=== PATIENT | male | born 2005 | race Caucasian/White ===

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

== ENCOUNTER 2023-01-18 19:54 | Emergency (ER) | payer MEDICAID, SELFPAY ==
--- NOTE | 2023-01-18 19:57 | XRR_ITS ---
PROCEDURE INFORMATION: Exam: XR Left Wrist Exam date and time: 01/18/2023 8:03 PM Age: 17 years old Clinical indication: Injury or trauma; Fall; Swelling (edema); Wrist; Left TECHNIQUE: Imaging protocol: Radiologic exam of the left wrist. Views: 3 or more views. COMPARISON: No relevant prior studies available. FINDINGS: Bones/joints: Distal radial metaphyseal somewhat impacted minimally displaced fracture best seen on the lateral view. Soft tissues: Normal. XR/XR wrist LT min 3V* [id number] IMPRESSION: Distal radial metaphyseal somewhat impacted minimally displaced fracture best seen on the lateral view.
[2023-01-18 20:07] VITALS: BP 116/76; PULSE 94; RESP 16; TEMP 36.4; O2SAT 100; BMI 21.4
--- NOTE | 2023-01-18 21:10 | W.ED.EXTPRO ---
HPI - Extremity Problem General: Chief complaint: Extremity Injury, Upper Stated complaint: left wrist injury Time Seen by Provider: 01/18/23 21:08 Source: patient Mode of arrival: ambulatory Limitations: no limitations History of Present Illness: 17-year-old male states he was playing basketball this evening he states he went for a shot and fell onto his left wrist he had left wrist pain since then he does have swelling states much worse with movement and with palpation he denies any other injuries denies hitting his head he rates his pain a 6 out of 10 currently. Associated symptoms: Deny chest pain, fever(s) or rash Review of Systems Const: Denies: fever(s), chills, body aches or change in appetite Eyes: Denies: blurry vision or eye discomfort ENMT: Denies: throat pain or dental pain Card: Denies: chest pain Resp: Denies: dyspnea GI: Denies: abdominal pain, nausea, vomiting or diarrhea : Denies: dysuria Musc: Reports: extremity pain Skin/Breast: Denies: rash Neuro: Denies: headache(s) Psych: Denies: depression Ashish/Lymph: Denies: easy bruising All/Imm: Denies: urticaria PFSH ED PFSH: Medical History No pertinent past medical history Social History Smoking and tobacco status: never smoked Second hand smoke exposure: Yes Physical Exam Const: COMMON NORMALS: no acute distress and patient oriented x3 HENMT: COMMON NORMALS: normocephalic HEAD & SCALP: normocephalic Eye: COMMON NORMALS: conjunctivae normal CONJUNCTIVA: Yes conjunctivae normal Neck/C-Spine: COMMON NORMALS: full ROM Chest: COMMONS NORMALS: normal inspection of the chest Resp: COMMON NORMALS: normal respiratory effort Cardio: COMMON NORMALS: regular rate RATE: regular rate GI: INSPECTION: Yes normal to inspection Extremity: OTHER: Tenderness and swelling to left wrist distal pulses sensation intact Neuro: COMMON NORMALS: patient oriented x3 Psych: COMMON NORMALS: mental status grossly normal Skin: COMMON NORMALS: no rashes or lesions noted GENERAL SKIN EXAM: no rashes or lesions noted Course Vital Signs: Vital signs: Vital Signs Temperature 97.6 F 01/18/23 20:07 Pulse Rate 94 01/18/23 20:07 Respiratory Rate 16 01/18/23 20:07 Blood Pressure 116/76 01/18/23 20:07 Pulse Oximetry 100 01/18/23 20:07 Oxygen Delivery Me thod 01/18/23 20:07 MDM - Extremity (Nontraumatic) Medical Decision Making Patient presents here with wrist fracture from a fall I did review his EKG and per my interpretation he has a compacted distal radius fracture I do not see any angulation no need for reduction at this time. He has no elbow or shoulder pain or no other injuries we will place him in a splint and given follow-up with orthopedics. Lab Data Radiology Impressions Wrist X-Ray 01/18/23 19:57 IMPRESSION: Distal radial metaphyseal somewhat impacted minimally displaced fracture best seen on the lateral view. Discharge Plan Discharge Patient Disposition: Home Clinical Impression: Fracture of wrist Qualifiers: Encounter type: initial encounter Fracture type: closed Laterality: left Qualified Code(s): S62.102A - Fracture of unspecified carpal bone, left wrist, initial encounter for closed fracture Condition: Stable Prescriptions: New Naprosyn 500 mg tablet 500 mg PO BID PRN (Reason: pain) Qty: 20 0RF Discharge Orders: Discharge ED (Routine); Ordered 01/18/23 Ordered By: Ricardo Joshua Referrals: Melvina Caruso DO [Primary Care Provider] - Edilson Reeves MD [Physician] - 1-3 days Discharge Diet: Advance as tolerated Discharge Activity: Resume usual activity Patient Instructions: Wrist Fracture in Adults (ED) Coding Level of Care Code ED [employer] S[employer] 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
[2023-01-18] MEDS: HYDROcodone-acetaminophen 5-325 mg Tablet 1 TAB PO (21:47)
--- NOTE | 2023-01-21 10:22 | DCPLANNER ---
Addendum entered by Maryam Bishop 01/24/23 07:57: Patient had a follow up appointment with ortho - patient did attend appointment. Addendum entered by Maryam Bishop 01/22/23 09:33: Patient has a follow up appointment scheduled for Saturday, January 23, [address]23 at 3:[address] Reeves at ortho. Original Note: backpackers manager had message to schedule a follow up appointment for patient with ortho. backpackers manager sent patients information to the front office staff at ortho. Patients information will be printed and reviewed. Clinic will call patient with appointment information.
== END 2023-01-18 21:55 | disposition home or self-care (01) ==
PROVIDERS: Emergency Provider Emergency Medicine; PCP Pediatrics
DX: S52.592A Other fractures of lower end of left radius, initial encounter for closed fracture (principal); Z77.22 Contact with and (suspected) exposure to environmental tobacco smoke (acute) (chronic); W18.39XA Other fall on same level, initial encounter; Y93.67 Activity, basketball
CPT/HCPCS: 29125; 73110; 99283

== ENCOUNTER 2023-01-23 16:32 | Outpatient (CLI) | payer MEDICAID, SELFPAY | END 2023-01-23 16:33 | disposition home or self-care (01) | LOC: SPT 16:32 | PROVIDERS: PCP Pediatrics; Visit Provider Orthopaedic Surgery | DX: Z46.89 Encounter for fitting and adjustment of other specified devices (principal); S52.592A Other fractures of lower end of left radius, initial encounter for closed fracture; X58.XXXA Exposure to other specified factors, initial encounter | CPT/HCPCS: 97760; L3982 ==

== ENCOUNTER 2023-01-28 07:50 | Emergency (ER) | payer MEDICAID, SELFPAY ==
[2023-01-28 07:54] VITALS: BP 132/90; PULSE 66; RESP 17; O2SAT 97; BMI 20.5
--- NOTE | 2023-01-28 08:20 | ED_ITS ---
Documented by User: HILTON Hernandez 01/28/23 11:44 HPI - General Adult General: Chief complaint: Airway/Esophagus Foreign Body Stated complaint: throwing up blood post tonsillectomy Time Seen by Provider: 01/28/23 07:51 Source: patient and family (mother) Mode of arrival: ambulatory Limitations: no limitations History of Present Illness: Patient is a 17-year-old male who presents to ED today along with his mother for concerns of post tonsillectomy bleeding. Patient states he is on day 4 of a tonsillectomy performed by ENT surgeon in [facility]. According to mother patient spent the night with friends last night and began vomiting blood at some point in the middle of the night. Patient states pain is comparable currently to what he has been experiencing over the last 4 days postop-no worsening discomfort. He states he has been eating and drinking well postop. Onset (ago): hour(s) Location: mouth (throat) Severity: moderate Pain Consistency: constant Relieving factors: none Associated symptoms: Reports no associated symptoms; Deny chest pain, dyspnea or malaise Treatments prior to arrival: none Review of Systems Const: Denies: fever(s), chills, body aches, fatigue or malaise ENMT: Reports: throat pain, odynophagia and other (tonsillar bleeding) Card: Denies: chest pain Resp: Denies: dyspnea GI: Denies: abdominal pain PFS ED PFSH: Medical History No pertinent past medical history Surgical History History of tonsillectomy and adenoidectomy Hx of appendectomy Social History Smoking and tobacco status: never smoked Second hand smoke exposure: Yes Physical Exam Const: COMMON NORMALS: no acute distress, average body habitus, patient oriented x3, no limitations, healthy appearing, alert and well nourished GENERAL APPEARANCE: cooperative ORIENTATION/CONSCIOUSNESS: Yes awake, Yes oriented to person, Yes oriented to place and Yes oriented to time HENMT: FACE & SINUS: normal facial exam MOUTH: Normal oral and palatal mucosa present, lip normal, malodorous breath (normal post tonsillectomy) and other (dried blood present throughout oral cavity) THROAT: uvula midline OTHER: absent tonsils; eschar tissue present; no active source of bleeding identified at this time although he does have quite a bit of dried blood throughout his oral pharynx making visualization difficult; no active vomiting or spitting blood Eye: GENERAL EYE: appearance normal, both eyes and all related structures Neck/C-Spine: COMMON NORMALS: full ROM GENERAL: Yes normal visual inspection, No anterior neck swelling and No submandibular swelling OTHER: some scant ecchymosis consistent with recent surgery Resp: COMMON NORMALS: normal respiratory effort and clear to auscultation bilaterally AUSCULTATION: clear to auscultation bilaterally Cardio: COMMON NORMALS: regular rate and regular rhythm RATE: regular rate RHYTHM: regular rhythm Neuro: COMMON NORMALS: patient oriented x3 SENSORIUM/ORIENTATION: Yes alert, Yes oriented to person, Yes oriented to place and Yes oriented to time Course Consultations: Consultation #1: Dr. Lucero-recommends gargling with ice cold hydrogen peroxide for 5-20 mins and reassess bleeding after this Vital Signs: Vital signs: Vital Signs Pulse Rate 66 01/28/23 07:54 Respiratory Rate 17 01/28/23 07:54 Blood Pressure 132/90 01/28/23 07:54 Pulse Oximetry 97 01/28/23 07:54 Oxygen Delivery Me thod Room Air 01/28/23 07:54 MDM - General Adult Medical Decision Making After first consulting with ENT we had patient gargle with cold hydrogen peroxide. There was some degree of noncompliance with patient regarding this. Ultimately we did get bleeding to stop for a short amount of time however he began bleeding again. Upon re-examination he appeared to have a small clot to his left lateral tonsillar pillar region-this seems to be gagging him and making him nauseous. He was able to gargle and expel the clot which then caused bleeding to resume. I spoke to Dr. Lucero again who recommended discharging patient with instructions to come directly to his office for further evaluation and treatment. Patient is stable from a bleeding standpoint to be discharged from the emergency department. Although present, it is very minimal at this time. Discharge Plan Discharge Patient Disposition: Home Clinical Impression: Post-tonsillectomy hemorrhage Condition: Stable Prescriptions: No Action ibuprofen 200 mg capsule 200 mg PO Q6H PRN (DME) Fast Form Cock Up Splint See Rx Instructions .Route .MEDSUPPLY Qty: 1 0RF Rx Instructions: As directed oxycodone-acetaminophen 5-325 mg tablet 1 tab PO Q8H PRN Naprosyn 500 mg tablet 500 mg PO BID PRN (Reason: pain) Qty: 20 0RF Discharge Orders: Discharge ED (Routine); Ordered 01/28/23 Ordered By: Melly Guerrero Referrals: Vicente Lucero MD [Physician] - Melvina Caruso DO [Primary Care Provider] - Activity Restrictions/Additional Instructions: As we discussed go straight to Dr. Lucero's office for further evaluation and treatment. [facility] is located in [facility]. You have been provided instructions/address/phone number to get there. He needs to continue to gargle with the cold water/hydrogen peroxide until he sees Dr. Lucero. Coding Level of Care Code ED Managing Partner [employer] for [employer] F[employer] Documented by User: John Ricci DO 01/28/23 12:50 HPI - General Adult General: Chief complaint: Airway/Esophagus Foreign Body Stated complaint: throwing up blood post tonsillectomy Time Seen by Provider: 01/28/23 07:51 PFSH ED PFSH: Medical History No pertinent past medical history Surgical History History of tonsillectomy and adenoidectomy Hx of appendectomy Social History Smoking and tobacco status: never smoked Second hand smoke exposure: Yes Course Vital Signs: Vital signs: Vital Signs Pulse Rate 66 01/28/23 07:54 Respiratory Rate 17 01/28/23 07:54 Blood Pressure 132/90 01/28/23 07:54 Pulse Oximetry 97 01/28/23 07:54 Oxygen Delivery Me thod Room Air 01/28/23 07:54 MDM - General Adult Medical Decision Making After first consulting with ENT we had patient gargle with cold hydrogen peroxide. There was some degree of noncompliance with patient regarding this. Ultimately we did get bleeding to stop for a short amount of time however he began bleeding again. Upon re-examination he appeared to have a small clot to his left lateral tonsillar pillar region-this seems to be gagging him and making him nauseous. He was able to gargle and expel the clot which then caused ble eding to resume. I spoke to Dr. Lucero again who recommended discharging patient with instructions to come directly to his office for further evaluation and treatment. Patient is stable from a bleeding standpoint to be discharged from the emergency department. Although present, it is very minimal at this time. Chart reviewed and patient discussed with midlevel. Agree with assessment and plan. Discharge Plan Discharge Patient Disposition: Home Clinical Impression: Post-tonsillectomy hemorrhage Condition: Stable Prescriptions: No Action ibuprofen 200 mg capsule 200 mg PO Q6H PRN (DME) Fast Form Cock Up Splint See Rx Instructions .Route .MEDSUPPLY Qty: 1 0RF Rx Instructions: As directed oxycodone-acetaminophen 5-325 mg tablet 1 tab PO Q8H PRN Naprosyn 500 mg tablet 500 mg PO BID PRN (Reason: pain) Qty: 20 0RF Discharge Orders: Discharge ED (Routine); Ordered 01/28/23 Ordered By: Melly Guerrero Referrals: Vicente Lucero MD [Physician] - Melvina Caruso DO [Primary Care Provider] - Activity Restrictions/Additional Instructions: As we discussed go straight to Dr. Lucero's office for further evaluation and treatment. He is located in the new Medical Office [facility]. You have been provided instructions/address/phone number to get there. He needs to continue to gargle with the cold water/hydrogen peroxide until he sees Dr. Lucero. Coding Level of Care Code ED Managing Partner [employer] for Sheila Duggan
[2023-01-28] MEDS: ondansetron 4 MG Tablet PO (10:56)
== END 2023-01-28 11:27 | disposition home or self-care (01) ==
PROVIDERS: Emergency Provider Physician Assistant; PCP Pediatrics
DX: K91.840 Postprocedural hemorrhage of a digestive system organ or structure following a digestive system procedure (principal); Z77.22 Contact with and (suspected) exposure to environmental tobacco smoke (acute) (chronic)
CPT/HCPCS: 99283; Q0162

== ENCOUNTER 2023-01-28 12:36 | Day surgery (SDC) | payer MEDICAID, SELFPAY ==
[2023-01-28] VITALS (12 sets, daily range): BP systolic 111–138; BP diastolic 62–82; PULSE 50–74; RESP 14–17; TEMP 36.2–36.9; O2SAT 94–100; BMI 20.7
--- NOTE | 2023-01-28 12:46 | W.PM.OPSUD ---
Surgery/Procedure H&P Update DATE OF PROCEDURE: January 28, 2023 DATE H&P PERFORMED: 01/28/23 H&P UPDATE INFORMATION: I have reviewed H&P completed within last 30 days, I have examined patient prior to procedure and No changes to prior documentation CHANGES TO PREVIOUS DOCUMENTATION: No changes PRIMARY INDICATION FOR PROCEDURE: Post tonsillectomy hemorrhage PLANNED PROCEDURE: Operation Date: 01/28/23 12:10 Proposed Procedures p Tonsillectomy Postop Bleed Control(Not Applicable) - Vicente Lucero MD
--- NOTE | 2023-01-28 13:00 | ANES.PREANE2 ---
Pre-Anesthetic Assessment Height/Weight: Height 1.78 m Temp Pulse Resp BP Pulse Ox O2 Del Method 97.6 F 73 16 111/62 96 Room Air 01/28/23 12:55 01/28/23 12:55 01/28/23 12:55 01/28/23 12:55 01/28/23 12:55 01/28/23 12:55 Preop Diagnosis: Postoperative hemorrhage tonsillectomy Operation Date: 01/28/23 12:10 Proposed Procedures p Tonsillectomy Postop Bleed Control(Not Applicable) - Vicente Lucero MD Familial anesthetic complications: brother at 14 months with cardiac anomaly during surgery Was Beta Erna taken within 24 hours: N/A Was Clonidine taken within 24 hours: N/A Last intake: pt with tonsil bleed and full stomach Last Intake: 22:00 Social No alcohol and No tobacco Exam alert, oriented x 3, clear to auscultation bilaterally and regular rate & rhythm Airway Submandibular: within normal limits Cervical ROM: within normal limits Mallampati: Class II Dentition: full Pulmonary None reported CV/HEM None reported None reported Hepatic None reported GI None reported Metabolic None reported Musc/skel None reported Neuropsych None reported Anesthetic Plan ASA status: 1E Anesthesia: General Medications/Allergies Home Medications Medication Instructions Recorded Confirmed Last Taken Type naproxen 500 mg tablet (Naprosyn) 500 mg PO BID PRN pain #20 tabs 01/18/23 01/28/23 Unknown Rx Fast Form Cock Up Splint #1 ea 01/23/23 01/28/23 Unknown Rx ibuprofen 200 mg capsule 200 mg PO Q6H PRN 01/23/23 01/28/23 Unknown History oxycodone-acetaminophen 5 mg-325 1 tab PO Q8H PRN 01/28/23 01/28/23 Unknown History mg tablet Allergies Allergy/AdvReac Type Severity Reaction Status Date / Time No Known Allergies Allergy Verified 01/28/23 12:54 PFSH Anesthesia Medical History No pertinent past medical history Surgical History History of tonsillectomy and adenoidectomy Hx of appendectomy Social History Smoking and tobacco status: never smoked Second hand smoke exposure: Yes Data Anesthesia Cardiac Studies: No Data to Display
[2023-01-28] MEDS: sodium chloride 0.9% 1,000 ML 30 ML IV (13:07)
[2023-01-28] MEDS: ceFAZolin 2,000 MG in sodium chloride 0.9% (plus) 50 ML 100 MG IV (13:11)
[2023-01-28] MEDS: oxymetazoline 0.05% Nasal Spray 15 mL 2 SPRAY NOSTRIL-B (13:39)
--- NOTE | 2023-01-28 13:46 | P.OP_ITS ---
Operative Report Date of procedure: January 28, 2023 Pre-op diagnosis: Preop Diagnosis Postoperative hemorrhage tonsillectomy Post-op diagnosis: Same Post-op findings: Hemorrhaging with arterial blood flow from inferior lateral aspect of left tonsillar fossa. Procedure done: Control of hemorrhage status post tonsillectomy. Implants: No implants Specimens removed/disposition: No specimens removed. Pathology: No pathology specimen Surgeon: Vicente Lucero MD Anesthesia: General Estimated blood loss: 25 mL of fresh blood and 60 mL of clots. Complications: No complications encountered Findings: Patient had large clots forming in the left lower tonsillar fossa and hanging down into the hypopharynx. Anesthesia suctioned large clot. I removed multiple large clots as well. Total amount of clot material approximately 60 cc. Bleeding was vigorous and from inferior lateral left tonsillar fossa Brief History: 17-year-old male patient who I believe likely had at least a peritonsillar cellulitis if not peritonsillar abscess last week. No on-call physician was available and therefore the patient was referred from the emergency room down to [facility]. He apparently underwent a tonsillectomy. He lives in this area and we therefore returned back home afterwards. Surgery was on 01/24/2023. Yesterday the patient did a sleepover at a friend's house and this morning woke up and started bleeding about 8:00. This continued and they went to the emergency room. Irrigations with ice cold hydrogen peroxide failed to control the bleeding. Clots would form but then with gagging and vomiting the bleeding would start up again. Therefore the patient was referred to ENT and I determined that it was going to be necessary to take him to the operating room for control of this hemorrhage. The procedure its risks and complications were explained and understood. Informed consent was granted and witnessed. Procedure: Description of procedure: The patient was placed on the operating table in the supine position. Adequate general endotracheal tube anesthesia was obtained. A timeout was accomplished identifying the patient date of plan procedure allergies fire risk and medications given. With all in agreement the procedure continued. The head drape was applied. A Ralph Singh mouthgag was inserted over the endotracheal tube and tongue ensuring that the upper incisors were in the guard. This was then opened and suspended from a rolled towel placed on his chest. Clot was removed with forceps. Bleeding was immediately identified as arterial and pumping from the inferior lateral aspect of the left tonsillar fossa. I suctioned all blood from the area. I placed a tonsil sponge with lidocaine in the area. Then I placed a tonsil sponge with 12-hour Afrin. After several minutes I remove the Afrin pack and identified the bleeding sites. Suction cautery was used to obtain complete hemostasis. Then vigorous irrigation with saline was accomplished. Manipulation with the InstaEDUuer suction tip was used repeatedly to try and see if there was going to be any bleeding to restart. None was seen. I checked all the other areas of both tonsillar fossae. No bleeding sites were noted in the other areas. The nose was irrigated and suction. The stomach was suctioned clean as well no substantial blood was noted in the stomach. The area was once again irrigated and suctioned clean. No bleeding was seen. The mouthgag was released and the tongue and neck were massaged. The mouthgag was reopened. No bleeding was seen. The mouthgag was released and removed. Patient's head was returned to the upright position. Head drape and tape were removed. Face was cleansed. Again the throat was suctioned with no sign of bleeding. Patient was then returned to anesthesia for wake-up and extubation. The patient tolerated the procedure well had an estimated blood loss of fresh blood of 25 mL and 60 mL of clots.
--- NOTE | 2023-01-28 15:07 | ANE.PACU2 ---
Inpatient post-anesthesia follow up: Airway intact: Yes Vital signs: Temperature 98.4 F Pulse Rate 53 Respiratory Rate 16 Blood Pressure 138/82 Pulse Oximetry 97 Oxygen Delivery Me thod Room Air Oxygen Flow Rate 6 Fraction of Inspir ed Oxygen Hydration adequate: Yes Nausea and vomiting: No Pain level: 2 Mental status: Baseline
== END 2023-01-28 15:35 | disposition home or self-care (01) ==
PROVIDERS: PCP Pediatrics; Visit Provider Otolaryngology
PROC: (CPT 42960; principal; 2023-01-28 12:00)
DX: J95.830 Postprocedural hemorrhage of a respiratory system organ or structure following a respiratory system procedure (principal)
CPT/HCPCS: 42962; J0330; J0690; J1100; J2405; J2704; J3010; J7030

== ENCOUNTER → 2023-01-30 13:33 | Outpatient (BNVA) | payer MEDICAID, SELFPAY | PROVIDERS: PCP Pediatrics; Visit Provider Nurse Practitioner Family | DX: S52.502A Unspecified fracture of the lower end of left radius, initial encounter for closed fracture (principal); W18.30XA Fall on same level, unspecified, initial encounter; Y93.67 Activity, basketball | CPT/HCPCS: 73110 ==

== ENCOUNTER → 2023-02-20 13:01 | Outpatient (BNVA) | payer MEDICAID, SELFPAY | PROVIDERS: PCP Pediatrics; Visit Provider Nurse Practitioner Family | DX: S52.502A Unspecified fracture of the lower end of left radius, initial encounter for closed fracture (principal); W19.XXXA Unspecified fall, initial encounter; Y93.67 Activity, basketball | CPT/HCPCS: 73110 ==

== ENCOUNTER 2023-02-20 14:49 | Outpatient (CLI) | payer MEDICAID, SELFPAY | END 2023-02-20 14:50 | disposition home or self-care (01) | LOC: SPT 14:50 | PROVIDERS: PCP Pediatrics; Visit Provider Nurse Practitioner Family | DX: Z46.89 Encounter for fitting and adjustment of other specified devices (principal); S52.592D Other fractures of lower end of left radius, subsequent encounter for closed fracture with routine healing; X58.XXXD Exposure to other specified factors, subsequent encounter | CPT/HCPCS: 97760; L3908 ==

== ENCOUNTER 2023-03-29 13:23 | Inpatient (IN) | payer MEDICAID, SELFPAY ==
[2023-03-29 13:28] VITALS: BP 118/68; PULSE 84; RESP 16; TEMP 37.3; O2SAT 97
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
[2023-03-29 14:36] LABS: Basophils # 0.1 10^3/uL (0.0-0.1); Basophils % 0.9 %; Eosinophils # 0.1 10^3/uL (0.0-0.8); Eosinophils % 2.2 %; Hematocrit 43.4 % (42.0-52.0); Hemoglobin 13.8 g/dL (11.7-16.6); Lymphocytes # 1.1 10^3/uL (1.5-6.5); Lymphocytes % 19.5 %; Mean Corpuscular HGB Conc 31.8 g/dL (30.0-36.0); Mean Corpuscular Hemoglobin 27.7 pg (28.0-34.0); Mean Corpuscular Volume 87.1 fl (80-94); Mean Platelet Volume 10.8 fL (7.4-10.4); Monocytes # 0.4 10^3/uL (0.2-0.9); Monocytes % 7.7 %; Neutrophils # 3.88 10^3/uL (1.8-8.0); Neutrophils % 69.5 %; Nucleated Red Blood Cells % 0 %; Platelet Count 232 10^3/cmm (130-400); Red Blood Count 4.98 10^6/uL (4.1-5.3); White Blood Count 5.6 10^3/uL (4.5-13.0)
[2023-03-29 15:02] LABS: Amphetamines Screen Urine Negative (Negative); Barbiturates Screen Urine Negative (Negative); Benzodiazepines Screen Urine Negative (Negative); Cocaine Screen Urine Negative (Negative); Opiate Screen Urine Negative (Negative); PCP Screen Urine Negative (Negative); THC Screen Urine Negative (Negative)
[2023-03-29 15:03] LABS: Alanine Aminotransferase 9 U/L (0-41); Albumin Level 4.9 g/dL (3.5-5.2); Alkaline Phosphatase 92 U/L (40-130); Anion Gap 13.6 (5-19); Aspartate Amino Transferase 12 U/L (0-40); Blood Urea Nitrogen 11 mg/dL (6-20); Calcium 9.2 mg/dL (8.5-10.5); Carbon Dioxide 28 mmol/L (22-29); Chloride 104 mmol/L (98-107); Globulin 2.6 g/dL (1.3-4.6); Glomerular Filtration Rate 108.7 mL/min (90-130); Glucose 86 mg/dL (65-115); Osmolality Calculated 291 mOsm/kg (285-295); Potassium 4.6 mmol/L (3.5-5.1); Salicylate 0.7 mg/dL (3-10); Sodium 141 mmol/L (136-145); Total Bilirubin 0.9 mg/dL (0.15-1.2); Total Protein 7.5 g/dL (6.6-8.7)
[2023-03-29 15:05] LABS: Acetaminophen < 5.0 ug/mL (10-30); Alcohol Level < 10 mg/dL (0-10)
[2023-03-29 21:02] VITALS: RESP 16
[2023-03-30 06:00] VITALS: RESP 17
[2023-03-30] MEDS: nicotine 2 mg Gum BUCCAL ×3 (09:34→20:44)
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
[2023-03-30 14:00] VITALS: BP 116/65; PULSE 68; RESP 16; TEMP 36.6; O2SAT 100
[2023-03-30 20:06] VITALS: BP 107/60; PULSE 89; RESP 16; TEMP 37.2; O2SAT 99
[2023-03-31 06:00] VITALS: BP 121/74; PULSE 65; RESP 16; TEMP 36.4; O2SAT 99
[2023-03-31] MEDS: nicotine 2 mg Gum BUCCAL ×3 (07:41→12:49)
[2023-03-31 14:00] VITALS: BP 118/64; PULSE 74; RESP 16; O2SAT 99
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
[2023-03-31 14:49] VITALS: BP 118/64; PULSE 74; RESP 16; O2SAT 99
== END 2023-03-31 16:15 | disposition home or self-care (01) | DRG 886 ==
LOC: ER 15:58 → NP 16:15
PROVIDERS: Admitting Provider Psychiatry & Neurology Psychiatry; Emergency Provider Emergency Medicine; Visit Provider Psychiatry & Neurology Psychiatry
DX: F90.9 Attention-deficit hyperactivity disorder, unspecified type (principal); R45.851 Suicidal ideations; R45.4 Irritability and anger; F17.290 Nicotine dependence, other tobacco product, uncomplicated; F12.90 Cannabis use, unspecified, uncomplicated; Z81.8 Family history of other mental and behavioral disorders; Z62.810 Personal history of physical and sexual abuse in childhood
CPT/HCPCS: 36415; 80053; 80306; 80307; 84443; 85025; 99238; 99285

== ENCOUNTER → 2023-09-13 08:42 | Outpatient (BNVA) | payer MEDICAID, SELFPAY | PROVIDERS: Visit Provider Nurse Practitioner Family | DX: R52 Pain, unspecified (principal) | CPT/HCPCS: 87426 ==

== ENCOUNTER 2023-09-20 19:58 | Emergency (ER) | payer MEDICAID, SELFPAY ==
[2023-09-20 20:16] VITALS: PULSE 82; RESP 18; TEMP 36.8; O2SAT 99; BMI 20.5
--- NOTE | 2023-09-20 20:25 | ED_ITS ---
HPI - Extremity Problem General: Chief complaint: Extremity Injury, Lower Stated complaint: ankle injury Time Seen by Provider: 09/20/23 20:00 History of Present Illness: Patient is a 18-year-old male with no significant past medical history who presents to the emergency department for evaluation of a right ankle injury. Patient reports that earlier this afternoon he was playing basketball when he rolled his right ankle on someone's foot. Patient states that since the incident he has had increased pain to the affected area. He currently rates his pain as a 7 out of 10 in severity that he describes as a sharp/stabbing sensation. Patient reports that he thinks he heard a pop at onset of injury. Patient reports that he is able to ambulate, however, this does exacerbate his pain. Admits to full range of motion in his right ankle. Denies any numbness or tingling in the ipsilateral extremity. Patient denies hitting his head or any other part of his body in the accident. No other complaints at this time. Associated symptoms: Deny chest pain, fever(s) or rash Review of Systems General: Reports: 10 or more systems reviewed and unremarkable except in HPI and below Const: Denies: fever(s) or chills Eyes: Denies: change in vision or blurry vision ENMT: Denies: throat pain, ear or mastoid pain, ear discharge, nasal discharge or nasal congestion Card: Denies: chest pain or palpitations Resp: Denies: dyspnea, productive cough, non-productive cough or wheezing GI: Denies: abdominal pain, nausea, vomiting, diarrhea or constipation Musc: Reports: other (Right ankle pain) Skin/Breast: Denies: rash Neuro: Denies: numbness in extremities or weakness in extremities PFSH ED PFSH: Medical History No pertinent past medical history Surgical History Hx of appendectomy History of tonsillectomy and adenoidectomy Social History Smoking and tobacco/nicotine status: never used tobacco/nicotine Second hand smoke exposure: Yes Physical Exam Const: COMMON NORMALS: no acute distress, average body habitus, patient oriented x3 and alert HENMT: COMMON NORMALS: normocephalic and atraumatic HEAD & SCALP: normocephalic and atraumatic Eye: COMMON NORMALS: Equal, round and reactive pupils present, EOMs intact bilaterally and conjunctivae normal CONJUNCTIVA: Yes conjunctivae normal PUPIL: Yes Equal, round and reactive pupils present Neck/C-Spine: COMMON NORMALS: full ROM Chest: COMMONS NORMALS: normal inspection of the chest Resp: COMMON NORMALS: normal respiratory effort, No retractions and No use of accessory muscles Cardio: OTHER: 2+ dorsalis pedis pulse of the right rosendo t. Regular rate Extremity: OTHER: Tenderness to palpation of the right ankle primarily around the lateral malleolus. No swelling, erythema, or ecchymosis is appreciated to the affected area. Patient has full passive and active range of motion in the right ankle, foot, and toes. No bony abnormalities or protuberances noted. No laxity is felt to the right ankle joint. Moving all other bilateral upper and lower extremities without weakness or deficit. Neuro: COMMON NORMALS: patient oriented x3 SENSORIUM/ORIENTATION: Yes alert OTHER: Sensation intact to the entirety of the bilateral upper and lower extremities. Course Vital Signs: Vital signs: Vital Signs Temperature 98.2 F 09/20/23 20:16 Pulse Rate 82 09/20/23 20:16 Respiratory Rate 18 09/20/23 20:16 Pulse Oximetry 99 09/20/23 20:16 Oxygen Delivery Me thod Room Air 09/20/23 20:16 MDM - Extremity (Nontraumatic) Medical Decision Making Patient is a 18-year-old male with no significant past medical history who presents to the emergency department for evaluation of a right ankle injury. On physical examination patient is nontoxic and in no acute distress. Vital signs remained stable throughout the ED course. Patient is afebrile. Patient is neurovascular intact. Compartments are soft and there is no evidence of compartment syndrome. X-ray of the right ankle showed no acute fracture or dislocation. Based off history and physical examination I do not believe the patient symptoms are emergent and warrant further emergent evaluation at this time. An Jorgito wrap and crutches were provided in the emergency department for symptomatic relief. Patient was instructed over RICE therapy. Tylenol and ibuprofen as needed for pain. Call your primary care provider tomorrow with an update of your symptoms and to schedule an appointment for further management/evaluation. You may need further imaging if your symptoms persist. Return to the emergency department for any rapid or worsening symptoms or as needed. Patient stated understanding of all discharge instructions was agreeable to plan of care. Differential diagnosis includes was not limited to fracture, contusion, sprain, dislocation Lab Data Radiology Impressions Ankle X-Ray 09/20/23 20:25 IMPRESSION: 1. No acute findings. 2. Os trigonum, a normal variant. All radiology interpretation(s) finalized by discharge Discharge Plan Discharge Patient Disposition: Home Clinical Impression: Sprain of ankle, right Condition: Stable Prescriptions: No Action No Known Home Medications Discharge Orders: Discharge ED (Routine); Ordered 09/20/23 Ordered By: Vikram Sagastume Patient Instructions: Ankle Sprain (ED) Activity Restrictions/Additional Instructions: As discussed in room no acute fracture or dislocation was noted on your x-ray. Increase oral hydration. Tylenol and ibuprofen as needed for pain. An Jorgito wrap and crutches was provided in the emergency department for symptomatic relief. Ice can be placed over the affected area 15 to 20 minutes 5-6 times a day. Elevation of your right foot can reduce the swelling also alleviate your symptoms. Call your primary care provider tomorrow with an update of your symptoms and to schedule appointment for further management/evaluation. You may need further imaging if your symptoms persist. Return to the emergency department for any rapid or worsening symptoms or as needed. Coding Level of Care Code ED Fixed Income Analyst for Sheila Duggan
--- NOTE | 2023-09-20 20:25 | XRR_ITS ---
PROCEDURE INFORMATION: Exam: XR Right Ankle Exam date and time: 09/20/2023 8:46 PM Age: 18 years old Clinical indication: Injury or trauma; Fall; Other: Rtankle pain/swelling; Patient HX: RT ankle pain/swelling after twisting injury TECHNIQUE: Imaging protocol: Radiologic exam of the right ankle. Views: 3 or more views. COMPARISON: No relevant prior studies available. FINDINGS: Bones/joints: Os trigonum, a normal variant. Soft tissues: Normal. XR/XR ankle RT min 3V* [id number] IMPRESSION: 1. No acute findings. 2. Os trigonum, a normal variant.
[2023-09-20] MEDS: ibuprofen 200 mg Tablet 400 MG PO (21:55)
[2023-09-20 22:00] VITALS: BP 111/73; PULSE 83; RESP 18; O2SAT 100
== END 2023-09-20 22:02 | disposition home or self-care (01) ==
PROVIDERS: Emergency Provider Physician Assistant
DX: S93.401A Sprain of unspecified ligament of right ankle, initial encounter (principal); X50.1XXA Overexertion from prolonged static or awkward postures, initial encounter; Y93.67 Activity, basketball
CPT/HCPCS: 73610; 99283

== ENCOUNTER 2023-12-11 18:53 | Emergency (ER) | payer MEDICAID, SELFPAY ==
--- NOTE | 2023-12-11 18:56 | XRR_ITS ---
PROCEDURE INFORMATION: Exam: XR Abdomen Exam date and time: 12/11/2023 7:26 PM Age: 18 years old Clinical indication: Abdominal pain; Additional info: Abd pain TECHNIQUE: Imaging protocol: Radiologic exam of the abdomen. Views: Frontal supine view of the abdomen. 1 View. COMPARISON: No relevant prior studies available. FINDINGS: Gastrointestinal tract: Normal. No bowel dilation. Bones/joints: Unremarkable. XR/XR KUB [id number] IMPRESSION: No acute findings.
[2023-12-11 19:46] VITALS: BP 127/61; PULSE 81; RESP 16; TEMP 36.7; O2SAT 98; BMI 19.9
--- NOTE | 2023-12-11 20:00 | W.ED.ABDPA2 ---
HPI - Abdominal Pain General: Chief Complaint: Abdominal Pain Stated Complaint: possible bowl blockage Time Seen by Provider: 12/11/23 19:58 History of Present Illness: Patient is a 18-year-old male with no significant past medical history presents to the emergency department today complaining of constipation onset 6 days. Patient states that he took an entire bottle of mag citrate, as well as 2 doses of MiraLAX today, with no relief of his symptoms. He states that he has started to develop some diffuse abdominal tenderness, though he notes that he has continued to pass gas. He denies any encopresis, blood in stool, nausea/vomiting, fever, or any other symptoms. He denies any dietary changes and states that his appetite has remained the same. Patient has a surgical history positive for appendectomy. Associated Symptoms: Reports change in bowel habits and constipation; Denies chills, diarrhea, dysuria, fever(s), hematochezia, fecal incontinence, melena, nausea and vomiting Review of Systems General: Reports: 10 or more systems reviewed and unremarkable except in HPI and below Const: Denies: fever(s), chills, change in appetite or fatigue ENMT: Denies: throat pain Card: Denies: chest pain, palpitations, edema or lightheadedness Resp: Denies: dyspnea, productive cough or wheezing GI: Reports: abdominal pain, constipation and change in bowel habits; Denies: nausea, vomiting, diarrhea, fecal incontinence, rectal pain, hematochezia or melena : Denies: flank pain, difficulty urinating or dysuria Musc: Denies: neck pain or back pain [facility] ED PFSH: Medical History No pertinent past medical history Surgical History Hx of appendectomy History of tonsillectomy and adenoidectomy Social History Smoking and tobacco/nicotine status: never used tobacco/nicotine Second hand smoke exposure: Yes Physical Exam Const: COMMON NORMALS: no acute distress, average body habitus, patient oriented x3, no limitations, healthy appearing, alert and well nourished HENMT: COMMON NORMALS: normocephalic, atraumatic, external ears normal and Normal external nose present HEAD & SCALP: normocephalic and atraumatic FACE & SINUS: normal facial exam NOSE: Normal external nose present EXTERNAL EAR: Yes external ears normal MOUTH: Normal oral and palatal mucosa present THROAT: posterior oropharynx normal Eye: COMMON NORMALS: EOMs intact bilaterally, conjunctivae normal and no scleral icterus CONJUNCTIVA: Yes conjunctivae normal Neck/C-Spine: COMMON NORMALS: full ROM and no JVD Resp: COMMON NORMALS: normal respiratory effort, No retractions, No use of accessory muscles and clear to auscultation bilaterally AUSCULTATION: clear to auscultation bilaterally Cardio: COMMON NORMALS: no JVD, regular rate, regular rhythm, S1 normal heart sound present, S2 normal heart sound present, No gallops present (Cardio), No clicks present (Cardio), No murmurs present (Cardio) and No rub (Cardio) RATE: regular rate RHYTHM: regular rhythm HEART SOUNDS: S1 normal heart sound present and S2 normal heart sound present GI: COMMON NORMALS: Soft to palpation and no masses INSPECTION: Yes normal to inspection AUSCULTATION: Yes Hyperactive bowel sounds present PALPATION: Yes Soft to palpation, Yes Tenderness to palpation present (GI) Details: other (Diffuse), Yes Guarding due to palpation present (GI) (Voluntary) and No Rigid due to palpation RECTAL EXAM: Yes deferred Extremity: COMMON NORMALS: normal to inspection and full ROM Neuro: COMMON NORMALS: patient oriented x3 SENSORIUM/ORIENTATION: Yes alert Course Vital Signs: Vital signs: Vital Signs Temperature 98.1 F 12/11/23 19:46 Pulse Rate 81 12/11/23 19:46 Respiratory Rate 16 12/11/23 19:46 Blood Pressure 127/61 12/11/23 19:46 Pulse Oximetry 98 12/11/23 19:46 Oxygen Delivery Me thod Room Air 12/11/23 19:46 MDM - Abdominal Pain Medical Decision Making This patient is a 18-year-old male who was seen and evaluated in the emergency department today for for constipation onset 6 days. He notes retaining the ability to pass gas. Symptoms not improved with MiraLAX and mag citrate. Differential include constipation, stool impaction, bowel obstruction. His vitals have remained normal throughout his ED course, and labs were overall unremarkable. KUB reveals a moderate stool burden in the sigmoid and descending colon, but no evidence of obstruction or significant bowel distention. After given 1 L of fluids, patient states he was able to have a successful bowel movement while in the emergency department. He states he feels significantly better, and is comfortable with discharge home. Patient encouraged to drink plenty of fluids and reasons to return are discussed. Lab Data 12/11/23 20:00 12/11/23 20:00 Labs/Radiology: Radiology Impressions KUB X-Ray 12/11/23 18:56 IMPRESSION: No acute findings. Laboratory Results WBC 5.49 10^3/uL (4.5-13.0) 12/11/23 20:00 RBC 5.00 10^6/uL (3.85-5.65) 12/11/23 20:00 Hgb 14.30 g/dL (13.2-15.6) 12/11/23 20:00 Hct 43.8 % (37-53) 12/11/23 20:00 MCV 87.6 fl (82-101) 12/11/23 20:00 MCH 28.6 pg (27-33) 12/11/23 20:00 MCHC 32.6 g/dL (30-55) 12/11/23 20:00 RDW 13.9 % (12.1-15.1) 12/11/23 20:00 Plt Count 221 10^3/cmm (157-399) 12/11/23 20:00 MPV 10.7 fL (7.4-10.4) H 12/11/23 20:00 Neut % (Auto) 53.1 % 12/11/23 20:00 Lymph % (Auto) 35.3 % 12/11/23 20:00 [place] % (Auto) 6.9 % 12/11/23 20:00 Eos % (Auto) 3.8 % 12/11/23 20:00 Baso % (Auto) 0.9 % 12/11/23 20:00 Neut # (Auto) 2.91 10^3/uL (1.8-8.0) 12/11/23 20:00 Lymph # (Auto) 1.9 10^3/uL (1.5-6.5) 12/11/23 20:00 [place] # (Auto) 0.4 10^3/uL (0.2-0.9) 12/11/23 20:00 Eos # (Auto) 0.2 10^3/uL (0.0-0.8) 12/11/23 20:00 Baso # (Auto) 0.1 10^3/uL (0.0-0.1) 12/11/23 20:00 Nucleated RBC % (auto) 0 % 12/11/23 20:00 Nucleated RBCs # 0.0 /100WBC 12/11/23 20:00 Sodium 142 mmol/L (136-145) 12/11/23 20:00 Potassium 4.3 mmol/L (3.5-5.1) 12/11/23 20:00 Chloride 106 mmol/L (98-107) 12/11/23 20:00 Carbon Dioxide 29 mmol/L (22-29) 12/11/23 20:00 Anion Gap 11.3 (5-19) 12/11/23 20:00 BUN 9 mg/dL (6-20) 12/11/23 20:00 Creatinine 0.9 mg/dL (0.7-1.2) 12/11/23 20:00 GFR Calculation 107.6 mL/min (90-130) 12/11/23 20:00 Glucose 88 mg/dL (65-115) 12/11/23 20:00 Calculated Osmolality 292 mOsm/kg (285-295) 12/11/23 20:00 Calcium 9.3 mg/dL (8.5-10.5) 12/11/23 20:00 Total Bilirubin 0.6 mg/dL (0.15-1.2) 12/11/23 20:00 AST 13 U/L (0-40) 12/11/23 20:00 ALT 12 U/L (0-41) 12/11/23 20:00 Alkaline Phosphatase 80 U/L (40-130) 12/11/23 20:00 Total Protein 7.5 g/dL (6.6-8.7) 12/11/23 20:00 Albumin 4.7 g/dL (3.5-5.2) 12/11/23 20:00 Globulin 2.8 g/dL (1.3-4.6) 12/11/23 20:00 Lipase 79 U/L (13-60) H 12/11/23 20:00 All radiology interpretation(s) finalized by discharge Discharge Plan Discharge Patient Disposition: Home Clinical Impression: Constipation Qualifiers: Constipation type: unspecified constipation type Qualified Code(s): K59.00 - Constipation, unspecified Condition: Stable Prescriptions: No Action No Known Home Medications Discharge Orders: Discharge ED (Routine); Ordered 12/11/23 Ordered By: Lewis Gillespie Discharge Diet: Usual diet Discharge Activity: Increase activity as tolerated Patient Instructions: Constipation (ED) Activity Restrictions/Additional Instructions: Plenty of fluids. If you develop constipation in the future, [id number] senna and MiraLAX as needed. Return if new or worsening symptoms. Stand Alone Forms: Work/School Release Coding Level of Care Code ED [employer] for Sheila Duggan
[2023-12-11 20:10] LABS: Basophils # 0.1 10^3/uL (0.0-0.1); Basophils % 0.9 %; Eosinophils # 0.2 10^3/uL (0.0-0.8); Eosinophils % 3.8 %; Hematocrit 43.8 % (37-53); Lymphocytes # 1.9 10^3/uL (1.5-6.5); Lymphocytes % 35.3 %; Mean Corpuscular HGB Conc 32.6 g/dL (30-55); Mean Corpuscular Hemoglobin 28.6 pg (27-33); Mean Corpuscular Volume 87.6 fl (82-101); Mean Platelet Volume 10.7 fL (7.4-10.4); Monocytes # 0.4 10^3/uL (0.2-0.9); Monocytes % 6.9 %; Neutrophils # 2.91 10^3/uL (1.8-8.0); Neutrophils % 53.1 %; Nucleated Red Blood Cells % 0 %; Platelet Count 221 10^3/cmm (157-399); Red Cell Distribution Width 13.9 % (12.1-15.1); White Blood Count 5.49 10^3/uL (4.5-13.0)
[2023-12-11 20:34] LABS: Alanine Aminotransferase 12 U/L (0-41); Albumin Level 4.7 g/dL (3.5-5.2); Alkaline Phosphatase 80 U/L (40-130); Anion Gap 11.3 (5-19); Aspartate Amino Transferase 13 U/L (0-40); Blood Urea Nitrogen 9 mg/dL (6-20); Calcium 9.3 mg/dL (8.5-10.5); Carbon Dioxide 29 mmol/L (22-29); Chloride 106 mmol/L (98-107); Creatinine Clr Calc Pharmacy 123.9148; Globulin 2.8 g/dL (1.3-4.6); Glomerular Filtration Rate 107.6 mL/min (90-130); Glucose 88 mg/dL (65-115); Lipase 79 U/L (13-60); Osmolality Calculated 292 mOsm/kg (285-295); Potassium 4.3 mmol/L (3.5-5.1); Sodium 142 mmol/L (136-145); Total Bilirubin 0.6 mg/dL (0.15-1.2); Total Protein 7.5 g/dL (6.6-8.7)
[2023-12-11] MEDS: sodium chloride 0.9% 1,000 ML 999 ML IV (20:49)
== END 2023-12-11 22:00 | disposition home or self-care (01) ==
PROVIDERS: Emergency Medicine; Emergency Provider Nurse Practitioner Family
DX: K59.00 Constipation, unspecified (principal); Z77.22 Contact with and (suspected) exposure to environmental tobacco smoke (acute) (chronic)
CPT/HCPCS: 36415; 74018; 80053; 83690; 85025; 96360; 99284; J7030

== ENCOUNTER → 2024-11-17 11:34 | Outpatient (BNVA) | payer MEDICAID, SELFPAY | PROVIDERS: Visit Provider Registered Nurse Neonatal Intensive Care | DX: J10.1 Influenza due to other identified influenza virus with other respiratory manifestations (principal) | CPT/HCPCS: 87400 ==

== ENCOUNTER → 2025-01-30 17:44 | Outpatient (BNVA) | payer SELFPAY | PROVIDERS: Visit Provider Emergency Medicine | DX: S93.492A Sprain of other ligament of left ankle, initial encounter (principal); X50.1XXA Overexertion from prolonged static or awkward postures, initial encounter | CPT/HCPCS: 73610 ==